=== PATIENT | male | born 1965 | race Caucasian/White ===

== ENCOUNTER 2021-05-07 14:09 | Emergency (ER) | payer OTHER ==
[~2021-05-07] VITALS: Ht 170.2 cm; Wt 76.9 kg
[2021-05-07 14:20] VITALS: BP 161/84
[2021-05-07] MEDS ORDERED: CYCL-331 PO (14:44)
[2021-05-07] MEDS ORDERED: KETOROLAC 15 MG/ML VIAL. IVP ONE (14:45)
--- NOTE | 2021-05-07 14:46 | PHYS DOC ---
Past History Past Surgical History: Cancer Surgery (RUSSELL MINA APRN) Alcohol Use: Occasionally (RUSSELL MINA APRN) General Adult EDM: Chief Complaint: BACK PAIN - NO INJURY HPI: HPI: Patient is a 55-year-old male presents with back pain. Patient states he was getting out of his truck when he stepped wrong and caused pain to his lower back. Patient also reports sciatic nerve pain down his right leg. Patient has taken Tylenol ibuprofen at home. Pain 03/25. Patient has history of HIV. (RUSSELL MINA APRN) Review of Systems: Review of Systems: Constitutional: Denies fever or chills Eyes: Denies change in visual acuity HENT: Denies nasal congestion or sore throat Respiratory: Denies cough or shortness of breath Cardiovascular: Denies chest pain or edema GI: Denies abdominal pain, nausea, vomiting, bloody stools or diarrhea : Denies dysuria Musculoskeletal: Reports lower back pain and sciatica down right leg Integument: Denies rash Neurologic: Denies headache, focal weakness or sensory changes Endocrine: Denies polyuria or polydipsia Lymphatic: Denies swollen glands Psychiatric: Denies depression or anxiety (RUSSELL MINA APRN) Allergies: Allergies: Allergies Coded Allergies Type Severity Reaction Last Updated Verified No Known Drug Allergies 05/07/21 No (RUSSELL MINA APRN) Physical Exam: PE: Constitutional: Well developed, well nourished, no acute distress, non-toxic appearance. [] HENT: Normocephalic, atraumatic, bilateral external ears normal, oropharynx moist, no oral exudates, nose normal. [] Eyes: PERRLA, EOMI, conjunctiva normal, no discharge. [] Neck: Normal range of motion, no tenderness, supple, no stridor. [] Cardiovascular:Heart rate regular rhythm, no murmur [] Lungs & Thorax: Bilateral breath sounds clear to auscultation [] Abdomen: Bowel sounds normal, soft, no tenderness, no masses, no pulsatile masses. [] Skin: Warm, dry, no erythema, no rash. [] Back: Lower back tenderness, no CVA tenderness. [] Extremities: No tenderness, no cyanosis, no clubbing, ROM intact, no edema. [] Neurologic: Alert and oriented X 3, normal motor function, normal sensory fun ction, no focal deficits noted. [] Psychologic: Affect normal, judgement normal, mood normal. [] (RUSSELL MINA APRN) Current Patient Data: Vital Signs: Vital Signs Date Time Temp Pulse Resp B/P (MAP) Pulse Ox O2 Delivery O2 Flow Rate FiO2 05/07/21 14:20 97.9 88 20 161/84 96 Nasal Cannula (RUSSELL MINA APRN) EKG: EKG: [] (RUSSELL MINA APRN) Radiology/Procedures: Radiology/Procedures: XR LUMBAR SPINE 2-3V DATE: 05/07/2021 3:28 PM INDICATION: LOWER BACK PAIN COMPARISON: None. FINDINGS: Bones/Alignment: No evidence of acute compression fracture. There is no listhesis. Joints: Mild degenerative disc disease. Miscellaneous: Atherosclerotic vascular calcifications measuring up to 4.8 cm in diameter. IMPRESSION: 1. Atherosclerotic vascular calcifications suggesting abdominal aortic aneurysm measuring 4.8 cm in diameter. 2. Mild degenerative disc disease. Electronically signed by: Víctor Hernández MD (05/07/2021 4:15 PM) IVANNA (RUSSELL MINA APRN) Heart Score: C/O Chest Pain: No Risk Factors: Risk Factors: DM, Current or recent (<one month) smoker, HTN, HLP, family history of CAD, obesity. Risk Scores: Score 0 - 3: 2.5% MACE over next 6 weeks - Discharge Home Score 4 - 6: 20.3% MACE over next 6 weeks - Admit for Clinical Observation Score 7 - 10: 72.7% MACE over next 6 weeks - Early Invasive Strategies (RUSSELL MINA APRN) Course & Med Decision Making: Course & Med Decision Making Pertinent Labs and Imaging studies reviewed. (See chart for details) [] You are seen in the emergency room with back pain. Patient states he was getting out of his truck when he stepped wrong and had lower back pain with right-sided sciatica. Patient rates pain 7/10. Denies anything for pain. Patient given lidocaine patch and prescription for Flexeril. Patient also given IM Toradol shot. Patient concerned and requesting imaging. Lumbar x-ray shows incidental finding of aortic aneurysm measuring 4.8 cm. Inform patient of results. Gave patient copy of radiology report. Patient struck to follow-up with his PCP so they can further watch. Patient instructed to return to the emergency room with worsening symptoms discussed return precautions. Patient should follow-up with PCP with he has further concerns. (RUSSELL MINA APRN) Course & Med Decision Making I oversaw on the above date of service of this patient. This patient was evaluated, examined, treated, and dispositioned from the emergency department by the mid-level practitioner. Although I was working at the time , no assistance was requested. Electronically signed, Albin Pierson DO (ALBIN PIERSON DO) Julio Disclaimer: Julio Disclaimer: This electronic medical record was generated, in whole or in part, using a voice recognition dictation system. (RUSSELL MINA APRN) Departure Departure: Impression: Primary Impression: Back pain Qualified Codes: M54.41 - Lumbago with sciatica, right side Disposition: HOME / SELF CARE / HOMELESS Condition: STABLE Referrals: PCP,NO (PCP) Patient Instructions: Back Pain, Adult Additional Instructions: He was in the emergency room for lower back pain. You were given a lidocaine patch along with Toradol in the ER. Sending a prescription for Flexeril. Continue taking ibuprofen at home as well. Follow-up with your PCP. Return to emergency room if you have worsening symptoms or concerns. EMERGENCY DEPARTMENT GENERAL DISCHARGE INSTRUCTIONS Thank you for coming to [facility] (ED) today and trusting us with you care. We trust that you had a positivie experience in our Emergency Department. If you wish to speak to the department management, you may call the director at [phone]. YOUR FOLLOW UP INSTRUCTIONS ARE FOLLOWS: 1. Do you have a private Doctor? If you do not have a private doctor, please ask for a resource list of physicians or clinics that may be able to assist you with follow up care. 2. The Emergency Physician has interpreted your x-rays. The X-Ray specialist will also review them. If there is a change in the findings, you will be notified in 48 hours when at all possible. 3. A lab test or culture has been done, your results will be reviewed and you will be notified if you need a change in treatment. ADDITIONAL INSTRUCTIONS AND INFORMATION: 1. Your care today has been supervised by a physician who is specially trained in emergency care. Many problems require more than one evaluation for a complete diagnosis and treatment. We recommend that you schedule your follow up appointment as recommended to ensure complete treatment of you illness or injury. If you are unable to obtain follow up care and continue to have a problem, or if your condition worsens, we recommend that you return to the ED. 2. We are not able to safely determine your condition over the phone nor are we able to give sound medical advice over the phone. For these safety reasons, if you call for medical advice we will ask you to come to the ED for further evaluation. 3. If you have any questions regarding these discharge instructions please call the ED at [phone]. SAFETY INFORMATION: In the interest of safety, wellness, and injury prevention; we encourage you to wear your sealbelt, if you smoke; quite smoking, and we encourage family to use a protective helmet for bicycling and other sporting events that present an increased risk for head injury. IF YOUR SYMPTOMS WORSEN OR NEW SYMPTOMS DEVELOP, OR YOU HAVE CONCERNS ABOUT YOUR CONDITION; OR IF YOUR CONDITION WORSENS WHILE YOU ARE WAITING FOR YOUR FOLLOW UP APPOIN TMENT; EITHER CONTACT YOUR PRIMARY CARE DOCTOR, THE PHYSICIAN WHOSE NAME AND NUMBER YOU WERE GIVEN, OR RETURN TO THE ED IMMEDIATELY. Scripts Cyclobenzaprine Hcl (CYCLOBENZAPRINE HCL) 10 Mg Tablet 1 TAB PO TID for PAIN for 10 Days, #30 TAB Prov: RUSSELL MINA APRN 05/07/21 RUSSELL MINA APRN May 07, 2021 14:46 ALBIN PIERSON DO May 08, 2021 06:45
[2021-05-07] MEDS ORDERED: LIDOCAINE (700MG/PATCH) PATCH. TD ONE (15:00)
--- NOTE | 2021-05-07 16:17 | RAD ---
XR LUMBAR SPINE 2-3V DATE: 05/07/2021 3:28 PM INDICATION: LOWER BACK PAIN COMPARISON: None. FINDINGS: Bones/Alignment: No evidence of acute compression fracture. There is no listhesis. Joints: Mild degenerative disc disease. Miscellaneous: Atherosclerotic vascular calcifications measuring up to 4.8 cm in diameter. IMPRESSION: 1. Atherosclerotic vascular calcifications suggesting abdominal aortic aneurysm measuring 4.8 cm in d iameter. 2. Mild degenerative disc disease. Electronically signed by: Víctor Hernández MD (05/07/2021 4:15 PM) IVANNA
[2021-05-07] MEDS ORDERED: PATCH REMOVAL. MC SCH (21:00)
== END 2021-05-07 16:49 | disposition home or self-care (01) ==
LOC: ER 14:09
DX: M54.41 Lumbago with sciatica, right side (principal)
CPT/HCPCS: 72100; 96374; 99283; J1885